=== PATIENT | male | born 1985 | race Caucasian/White ===

== ENCOUNTER 2024-11-28 11:19 | Emergency (ER) | payer MEDICAID, SELFPAY ==
[2024-11-28 12:47] VITALS: BP 119/68; PULSE 115; RESP 20; TEMP 38.3; O2SAT 97; BMI 23.6
--- NOTE | 2024-11-28 13:08 | EDNOTE_ITS ---
<Statement entered by Sherry Sellers MD - 12/05/24 16:20> As co-signing physician, I was present and available for consult prn. I concur with the plan and care as documented by the midlevel provider. Upper Respiratory Inf. RME/HPI General Chief Complaint: Shortness of Breath/Dyspnea Stated Complaint: DIFF BREATHING x 5 DAYS Time Seen by Provider: 11/28/24 12:51 Source: patient Arrival date/time: 11/28/24 11:19 This is a 39-year-old male who presents to the emergency department with complaints of fever, chest congestion, for 2 days. Positive flulike symptoms. Positive sick contacts at home. Denies chest pain, dyspnea no wheezing. Mode of arrival: ambulatory Related Data Previous Rx's ?Medication ?Instructions ?Recorded Sulfamethoxazole/Trimethoprim DS * 1 tab PO BID #10 tabs 10/09/17 (BACTRIM DS *) ibuprofen 600 mg tablet 600 mg PO Q8H PRN pain #20 tabs 05/07/22 ibuprofen 800 mg tablet 800 mg PO TID PRN pain #30 tabs 03/18/23 cephalexin 500 mg capsule 500 mg PO QID #28 caps 02/25/24 ibuprofen 600 mg tablet 600 mg PO Q8H PRN pain #20 tabs 02/25/24 albuterol sulfate 90 mcg/actuation 2 puff inhalation Q6H PRN 11/28/24 aerosol inhaler (Ventolin HFA) shortness of breath or wheezing #8.5 grams guaifenesin 100 mg/5 mL oral 200 mg (10 mL) PO Q4H PRN cough 11/28/24 liquid (Tussin Chest Congestion) #473 mL ibuprofen 800 mg tablet 800 mg PO Q8H PRN pain #20 tabs 11/28/24 oseltamivir 75 mg capsule (Tamiflu) 75 mg PO BID 5 days #10 caps 11/28/24 Allergies Allergy/AdvReac Type Severity Reaction Status Date / Time No Known Allergies Allergy Verified 11/28/24 11:23 Review of Systems Review of Systems Systems Reviewed: All systems reviewed, normal except as documented Narrative Review of Systems: Gen: + fever, no chills, no weight loss EYES: No discharge, no visual changes, no pain HEENT: No ear pain, no congestion, no sore throat PULM: No shortness of breath, +cough, no congestion CV: No chest pain, no dyspnea on exertion, no palpitations GI: No nausea, no vomiting, no diarrhea, no pain, no constipation : No frequency, no urgency,? no dysuria Musc/skel: No joint pain, no back pain Skin: No rash? Psyc: No hallucinations, no depression Heme/Lymph: No easy bleeding or bruising tendencies Neuro: No weakness, no headache ED Exam Narrative Physical exam: General: Sittiing in Exam table in no acute distress, answering questions appropriately HENT: normocephalic, atraumatic, EOMI, PERRLA, moist mucous membranes Chest: chest wall is nontender Cardiac: regular rate and rhythm, normal S1 and S2, no murmurs, rubs, or gallops, capillary refill ?2 seconds Pulmonary: clear to auscultation bilaterally, no wheezing, crackles, or rhonchi Abdominal: active bowel sounds, soft, nontender, nondistended Neuro: A&OX3, CN II-XII intact, sensation grossly intact bilaterally in UE and LE. Skin: no rashes, no ecchymosis Ext: no lower extremity edema Course Quality Measures none Orders Category Date Time Status Bedside Influenza A&B Antigen Test NOW Care 11/28/24 13:03 Completed Ibuprofen Tab [Motrin Tab] Med 11/28/24 13:03 Discontinued 800 mg PO X1 ONE Vital Signs Vital signs: Vital Signs Temperature 101.0 F H 11/28/24 12:47 Pulse Rate 115 H 11/28/24 12:47 Respiratory Rate 20 11/28/24 12:47 Blood Pressure 119/68 11/28/24 12:47 Pulse Oximetry (%) 97 11/28/24 12:47 Oxygen Delivery Method Room Air 11/28/24 12:47 Upper Respiratory Infection MDM Narrative MDM Narrative:: 39-year-old male appears to have influenza-like symptoms, positive influenza A swab. Adjunct medication given and sent to pharmacy. Strict follow-up with his PCP return to the emergency department this any worsening symptoms change in condition. Patient data External records reviewed:: [facility] previous records Clinical information provided by:: patient Social determinants that could affect healthcare access:: housing Patient has the following chronic illnesses:: no How is presenting disease/condition affected by chronic disease/condition?: no chronic disease Evaluation data The following diagnostics were reviewed and interpreted by me:: lab results Lab and/or radiology exams considered but not ordered:: yes Interpretation Summary: +Influeza A Medications / Prescriptions Medications or Prescriptions considered but not ordered:: abx Medication administrations:: Medication Administration History Discontinued Medications Ibuprofen (Ibuprofen Tab 400 Mg Tablet) 800 mg PO X1 ONE Stop: 11/28/24 13:04 Last Admin: 11/28/24 13:45 Dose: 800 mg Documented By: meds given Consultations Consultation(s) initiated? (list below): No Diagnosis Upper Respiratory Differential Diagnosis: upper respiratory infection, croup, otitis media, sinusitis, bronchitis and influenza Most likely diagnosis given after review of the tests above:: INFLUENZA Admission Indicated Admission indicated?: not indicated Admission Request Was there a request for admission?: No Disposition Plan Disposition Plan: Discharge Discharge Attestation Discharge Attestation: The patient and all family members were given an opportunity to ask questions and understood the discharge instructions. Discharge instructions specifically effects, indications for sooner follow up or return to the emergency department, and the expected course of current diagnosis. Patient condition: Stable Discharge Plan Plan Patient Disposition: HOME (Self Care) Patient condition on transfer: Stable Prescriptions/Referrals Prescriptions/Med Rec: New oseltamivir [Tamiflu] 75 mg capsule 75 mg PO BID 5 Days Qty: 10 0RF ibuprofen 800 mg tablet 800 mg PO Q8H PRN (Reason: pain) Qty: 20 0RF albuterol sulfate [Ventolin HFA] 90 mcg/actuation HFA aerosol inhaler 2 puff inhalation Q6H PRN (Reason: shortness of breath or wheezing) Qty: 8.5 0RF guaifenesin [Tussin Chest Congestion] 100 mg/5 mL liquid 200 mg PO Q4H PRN (Reason: cough) Qty: 473 0RF No Action Sulfamethoxazole/Trimethoprim DS * (BACTRIM DS *) 1 TAB tablet 1 tab PO BID Qty: 10 0RF ibuprofen 600 mg tablet 600 mg PO Q8H PRN (Reason: pain) Qty: 20 0RF ibuprofen 800 mg tablet 800 mg PO TID PRN (Reason: pain) Qty: 30 0RF cephalexin 500 mg capsule 500 mg PO QID Qty: 28 0RF ibuprofen 600 mg tablet 600 mg PO Q8H PRN (Reason: pain) Qty: 20 0RF Problem List Clinical Impression: Influenza B Patient/Caregiver Discharge Instructions Discharge Activity: activity as tolerated Education Materials: ED Influenza (Adult) Additional Instructions: Your rapid influenza (FLU) test was positive. Start Tamiflu, antipyretics to pharmacy. Advised to increase hydration, warm tea and chicken rice soup can maintenance helper for throat pain. Please follow-up with your clinic 3-day follow-up. If you develop any type of respiratory distress or change in condition please go immediately to nearest emergency department Print Language: Somali Stand Alone Forms: Bernie Award Info., Patient Portal Info Letter PA/STORAGE MANAGEMENT CONSULTANT Supervising Physician PA/STORAGE MANAGEMENT CONSULTANT Supervising Physician: Dr. Sellers
[2024-11-28 13:45] VITALS: TEMP 38.3
[2024-11-28] MEDS: IBUPROFEN TAB 400 MG TABLET 800 MG PO (13:45)
[2024-11-28 13:47] VITALS: TEMP 37.1
== END 2024-11-28 13:50 | disposition home or self-care (01) ==
LOC: SERX 13:14
PROVIDERS: Emergency Provider Emergency Medicine
DX: J10.1 Influenza due to other identified influenza virus with other respiratory manifestations (principal)
CPT/HCPCS: 87400; 99283; A9270